=== PATIENT | male | born 1950 | race Caucasian/White ===

== ENCOUNTER 2016-08-01 14:41 | Outpatient (CLI) | payer MEDICARE | END 2016-08-01 14:42 | disposition critical access hospital (66) | LOC: EMS 14:41 | PROVIDERS: ATTEND Surgery | DX: R40.20 Unspecified coma (principal); R11.2 Nausea with vomiting, unspecified; S09.92XA Unspecified injury of nose, initial encounter; W22.8XXA Striking against or struck by other objects, initial encounter; Y92.009 Unspecified place in unspecified non-institutional (private) residence as the place of occurrence of the external cause | CPT/HCPCS: A0425; A0427 ==

== ENCOUNTER 2016-08-01 16:52 | Emergency (ER) | payer MEDICARE ==
[~2016-08-01 16:52] MED LIST: LORazepam 2 MG/ML SYRINGE IVP ONE; SUCCINYLCHOLINE 200 MG/10 ML VIAL IVP ONE; VECURONIUM 10 MG VIAL IVP ONE
[2016-08-01] MEDS ORDERED: VECURONIUM 10 MG VIAL IVP STA (17:24)
[2016-08-01] MEDS ORDERED: LORazepam 2 MG/ML SYRINGE IVP STA (17:24)
[2016-08-01] MEDS ORDERED: PROPOFOL 1000 MG/100 ML 100 ML IV ONE (17:52)
[2016-08-01] MEDS ORDERED: PROPOFOL 1000 MG/100 ML 100 ML IV STA (17:53)
[2016-08-01] MEDS ORDERED: SODIUM CHLORIDE 0.9% 1,000 ML IV ONE (18:52)
[2016-08-01] MEDS ORDERED: FAMOTIDINE 20 MG/50 ML 50 ML IV ONE ×2 (18:59→19:02)
== END 2016-08-01 18:52 | disposition short-term general hospital (02) ==
DX: J96.01 Acute respiratory failure with hypoxia (principal); T62.0X1A Toxic effect of ingested mushrooms, accidental (unintentional), initial encounter; R41.82 Altered mental status, unspecified
CPT/HCPCS: 36415; 36600; 70450; 71010; 80053; 80306; 80307; 81003; 82140; 82803; 83605; 83690; 85025; 96365; 96368; 96375; 99291; G0480; J2060